=== PATIENT | female | born 1960 | race African-American/Black ===

== ENCOUNTER 2017-02-19 07:08 | Day surgery (SDC) | payer OTHER ==
[~2017-02-19] VITALS: Ht 158.8 cm; Wt 53.0 kg
[2017-02-19] VITALS (9 sets, daily range): BP systolic 108–143; BP diastolic 70–80; PULSE 67–94; RESP 14–29; Ht 158.8 cm; Wt 53.0 kg
[~2017-02-19 07:08] MED LIST: CEFAZOLIN 1 GM INJ ONE
[2017-02-19] MEDS ORDERED: CYCL-319 PO (07:48)
[2017-02-19] MEDS ORDERED: GABA-526 PO (07:49)
[2017-02-19] MEDS ORDERED: NAPR-685 PO (07:50)
[2017-02-19] MEDS ORDERED: MAXZ25 PO (07:50)
[2017-02-19] MEDS ORDERED: METH500T PO (07:50)
[2017-02-19] MEDS ORDERED: DOCU-144 PO (07:51)
[2017-02-19] MEDS ORDERED: OXYB10TA6 PO (07:51)
[2017-02-19] MEDS ORDERED: LIDOCAINE 2% (SDV) 5 ML INJ ONE (08:25)
[2017-02-19] MEDS ORDERED: ROCURONIUM 50 MG INJ ONE (08:25)
[2017-02-19] MEDS ORDERED: PROPOFOL 20 ML ONE (08:25)
[2017-02-19] MEDS ORDERED: ONDANSETRON 4 MG INJ ONE (08:26)
[2017-02-19] MEDS ORDERED: MIDAZOLAM 1 MG/ML 2 ML INJ ONE (08:26)
[2017-02-19] MEDS ORDERED: FENTAnyl 50 MCG/ML VIAL ONE (08:26)
[2017-02-19] MEDS ORDERED: GLYCOPYRROLATE 0.4 MG INJ ONE (08:26)
[2017-02-19] MEDS ORDERED: NEOSTIGMINE 3 MG/3 ML SYRINGE ONE (08:26)
[2017-02-19] MEDS ORDERED: DEXAMETHASONE 4 MG/ML 1 ML INJ ONE (08:26)
[2017-02-19] MEDS ORDERED: SUGAMMADEX SODIUM 200 MG/2 ML VIAL IV ONE (08:27)
[2017-02-19] MEDS ORDERED: hydrALAzine 20 MG INJ ONE (08:47)
[2017-02-19] MEDS ORDERED: FLUMAZENIL 0.5 MG INJ ONE (09:08)
[2017-02-19] MEDS ORDERED: MEPERIDINE 25 MG INJ IV PRN (10:00)
[2017-02-19] MEDS ORDERED: OXYCODONE/ACETAMINOPHEN (5/325) TAB PO PRN ×2 (10:00)
[2017-02-19] MEDS ORDERED: ONDANSETRON 4 MG INJ IV PRN (10:00)
[2017-02-19] MEDS ORDERED: ATROPINE 1 MG/10 ML SYRINGE IV PRN (10:00)
[2017-02-19] MEDS ORDERED: MIDAZOLAM 1 MG/ML 2 ML INJ IV PRN (10:00)
[2017-02-19] MEDS ORDERED: morphine (1 MG/ML) 10ML SYRINGE IV PRN ×3 (10:00)
[2017-02-19] MEDS ORDERED: EPHEDrine SULFATE 50 MG/5 ML SYG IV PRN (10:00)
[2017-02-19] MEDS ORDERED: FENTAnyl 50 MCG/ML VIAL IV PRN ×2 (10:00)
[2017-02-19] MEDS ORDERED: DIPHENHYDRAMINE 50 MG INJ IV PRN (10:00)
[2017-02-19] MEDS ORDERED: HYDROmorphONE (0.2 MG/ML) 10ML SYG IV PRN ×3 (10:00)
[2017-02-19] MEDS ORDERED: LABETALOL HCL 20MG INJ IV PRN (10:00)
[2017-02-19] MEDS ORDERED: hydrALAzine 20 MG INJ IV PRN (10:00)
--- NOTE | 2017-02-19 10:08 | HP ---
DATE OF ADMISSION: 02/19/2017 CHIEF COMPLAINT: Pelvic pain. HISTORY OF PRESENT ILLNESS: This is a 56-year-old female with a known history of right ureteral stent, which is encrusted in the bladder. She is scheduled to undergo treatment of this encrusted stent. This patient underwent a colon cancer surgery, chemotherapy and radiation in 2011 and 2012. She has undergone a partial colectomy, colostomy and colostomy takedown. Due to continued abdominal pain, a CT scan was done, which showed a retained right ureteral stent and left renal duplication. In August 2016, cystoscopy revealed no stones at the ureteral orifice, large stone on right stent in the bladder was identified. The patient's CT scan in October 2016 revealed a right ureteral stent with incrustation in the bladder. There was no mention of incrustation within the kidney. A 6 mm encrustation in the distal ureter had also been identified. In November 2016, renal nuclear scan revealed 17 percent function, right kidney; 83 percent function, left kidney. Patient complains of sharp intermittent right-sided groin pain since this stent has been placed. She has had this pain for the past 3-4 years. She also has intermittent urinary incontinence, especially with an urge to void. She has had occasional blood in her urine. No fevers. PAST MEDICAL HISTORY: Hypertension, chronic kidney disease, hydronephrosis, colon cancer. PAST SURGICAL HISTORY: Colon resection, colostomy takedown, chemotherapy radiation. FAMILY HISTORY: Mother, cervical cancer. SOCIAL HISTORY: Patient drinks alcohol twice per week, smokes 1 pack of cigarettes per day. ALLERGIES: NO KNOWN DRUG ALLERGIES. MEDICATIONS: Cyclobenzaprine, diphenhydramine, gabapentin, triamterene. PHYSICAL EXAMINATION: GENERAL: Patient appears to be in no acute distress. ABDOMEN: Soft, normal bowel sounds. Nondistended, nontender. Hernia exam: None noted. Liver and spleen normal. GENITOURINARY: Kidneys: No CVA tenderness. Bladder: No fullness. EXTREMITIES: No edema. ASSESSMENT: 1. Right-sided retained ureteral stent. 2. Encrusted right ureteral stent in the bladder. 3. Small right ureteral stone. 4. Right hydronephrosis. 5. Right renal atrophy. 6. Left renal duplication. 7. Urinary frequency, urgency, urgency incontinence. 8. Intermittent gross hematuria. RECOMMENDATIONS: I have spoken with the patient in detail about the natural history, biology of encrusted stents. We discussed various treatment options. Among these options, the patient has elected, and I have recommended, that she undergo a cystoscopy, laser lithotripsy of the stone within the bladder, followed by ureteroscopy, laser lithotripsy, retrograde pyelogram, and replacement of the right ureteral stent. This procedure has been explained to the patient in detail. The risks and benefits have been discussed. She understands risks include, but are not limited to, infection, bleeding, damage to adjacent structures, heart problems, lung problems, possibility of need for further surgery, DVT, PE, DC, CVA, nonresolution of symptoms, recurrent symptoms, need for further treatment, need for further surgeries, bladder injury, ureteral injury, inability to remove the stent in 1 setting, need for further treatment such as ESWL and percutaneous nephrostolithotomy. She also understands that although the imaging has not shown encrustation of the stent within the kidney, this is still a possibility. If this stone is encrusted proximally, then she may require PCNL at a later date. All of her questions have been answered. No guarantees given. She would like to proceed. Dictated By: Roni Marks MD /[email or web address] /Document#: [id number]
[2017-02-19] MEDS ORDERED: IOHEXOL 300MG/ML 30 ML BTL ONE (10:19)
--- NOTE | 2017-02-19 11:53 | RADRPT ---
PROCEDURE: X-ray fluoroscopy guidance CLINICAL INDICATION: Pain TECHNIQUE: Fluoroscopic guidance was utilized for retrograde pyelogram. Fluoro time: 0.2 minutes Number of images/sequences: 11 COMPARISON: None available FINDINGS: Contrast is identified within a distended right renal pelvis. IMPRESSION: 1. X-ray fluoroscopic guidance, as above. RPTAT: QQ .Nathan Orr MD, Date Time Electronically viewed and signed by .Nathan Orr MD, on 02/19/2017 11:52 .R/
--- NOTE | 2017-02-19 12:06 | OPR ---
Date/Time of Note Date/Time of Note DATE: 02/19/17 TIME: 12:04 Operative Report Preoperative Diagnosis Encrusted Right ureteral stent Right [place] Right renal atrophy Postoperative Diagnosis Same Operation/Procedure Performed Cystoscopy laser lithotripsy bladder stone/encrusted stent right ureteroscopy stone basket extraction retrograde pyelogram Surgeon: JAIME OCHOA Anesthesia Type: general Estimated Blood Loss: 10 - 50 ml's Transfusion Required: no Specimens bladder stone and right ureteral stent Grafts/Implants 16 fr wood Complications: no JAIME OCHOA Feb 19, 2017 12:06
--- NOTE | 2017-02-19 12:07 | PDOCDIS ---
Discharge Instructions DIAGNOSIS Discharge Diagnosis encrusted ureteral stent CONDITION Patient Condition: Good HOME CARE INSTRUCTIONS: Diet Instructions: Regular ACTIVITY: Activity Restrictions: Slowly Increase Activity Bathing Restrictions: Shower FOLLOW UP/APPOINTMENTS Follow-up Plan 1 -2 weeks OTHER ORDERS: Other Orders: it is ok to have some blood in the urine SCHOOL/WORK RELEASE May return to School/Work on: Mar 01, 2017 May return to School/Work with: No Restrictions JAIME OCHOA Feb 19, 2017 12:07
--- NOTE | 2017-02-19 13:07 | OPR ---
DATE OF OPERATION: 02/19/2017 SURGEON: Dr. Roni Marks. PREOPERATIVE DIAGNOSIS: Encrusted right ureteral stent. POSTOPERATIVE DIAGNOSES: 1. Encrusted right ureteral stent. 2. Right ureteral stone. 3. Cystitis. OPERATION PERFORMED: 1. Cystoscopy with laser lithotripsy of bladder stone greater than 5 cm. 2. Right ureteroscopy with stone basket extraction. 3. Cystoscopy, with right retrograde pyelogram. INDICATIONS FOR PROCEDURE: The patient has a history of colon cancer surgery. She had undergone a stent placement at that time, although it was not clear why she had undergone stent placement at that time. It is not clear that patient's right ureter had been reimplanted in the bladder, and therefore, a stent had been placed. The patient's stent has becoming encrusted. She is now scheduled to undergo removal of the encrusted stent and possible placement of a new stent, as well as ureteroscopy and treatment of stones in the ureter. The procedure has been explained to the patient in detail. Risks and benefits have been discussed. All her questions have been answered. No guarantees given. She would like to proceed. OPERATIVE FINDINGS AT SURGERY: An extremely encrusted stent was identified in the bladder. The stone was greater than 5 cm. There was no encrustation on the stone within the ureter or the kidney. A 6 mm stone in the kidney was also removed with the stone basket extractor. At the end of the procedure, patient was stone free and did not required another stent. The right ureteral orifice was in the right anterior aspect of the bladder wall consistent with a ureteral reimplantation. It appears that at the time of colon cancer surgery patient underwent a right ureteral reimplantation. OPERATIVE PROCEDURE: Patient was brought to the operative room, underwent general endotracheal tube anesthesia. She was placed in lithotomy position. Abdomen, perineum and genitalia were prepped and draped in usual sterile fashion. A 22-Tunisian cystoscope was placed transurethrally. There was increased debris and foul smelly urine within the bladder. A very large stone was identified within the bladder in association with the patient's stent. A 25-Tunisian cystoscope was then placed. At this point, the stone media associate was used to crush some of the outer edges of the stone. However, it was not possible to treat the stone with the stone media associate. The 1000 micron laser fiber was then brought into the surgical field. The stone was then treated with laser lithotripsy. Over 1 hour of laser lithotripsy was performed in order to free the stent from the stone. Care was taken not to fracture the stent into multiple pieces. Throughout the treatment, the bladder was not allowed to overfill. Furthermore, lasering was not done on the mucosa. Extreme care was taken to treat the stone under direct vision and to treat the stone in such a way as to not damage the bladder mucosa. As this was done, the stone continued to break off the stent. The larger pieces of stone were also lasered with laser lithotripsy in order to be able to be irrigate them out of the bladder. Once the stent endoscopically was completely free of the stone distally, a stent grasper was used to remove the stent from the patient. The stent was examined. It appeared that the entire stent had been removed intact. There was no encrustation of the stent more proximally. Therefore, the ureteral portion and the adrenal pelvis portion did not have any stones. At this point, the bladder was copiously irrigated with a Damon syringe until the stone fragments had been removed from the bladder. Cystoscopy was re-performed. There were a few more stones, which were too large to exit the 25-Tunisian cystoscope. Therefore, these stones were also lasered with the laser fiber. These were also irrigated out of the bladder. At this point, cystoscopy was performed. No further stone fragments were seen. The left ureteral orifice was identified in the left trigone. However, the right ureteral orifice was not seen in the ureteral orifice. Instead, the right ureteral orifice was identified in the right anterior wall of the bladder consistent with a ureteral reimplantation. An open-ended catheter was then advanced into the right ureteral orifice. A retrograde pyelogram was performed revealing jetting of contrast into the more proximal portion of the ureter and into a very dilated renal pelvis and calices. At this point, a wire was passed under direct vision with fluoroscopy into the right kidney. A semi-rigid ureteroscope was then advanced under direct vision into the bladder. Next, it was placed into the right ureteral orifice. The distal ureter and mid ureter and proximal ureters were carefully examined under direct vision. The ureter appeared to be open without any evidence of obstruction other than a small stone in the mid ureter. A stone basket extractor was used to grasp the stone. This stone was then brought out of the patient's body completely. The ureteroscope was placed back into the bladder. Another ureteroscopy was performed. This was advanced all the way up into the renal pelvis. No other stones were identified. At this point, the ureteroscope was discontinued. Since it appeared that the ureter was open, decision was made not to place another stent for the patient. Furthermore, there was very minimal manipulation of the actual ureter. The ureteroscope was discontinued. Bladder was reexamined under direct vision with the cystoscope. No other stone fragments were seen. Patient has a history of duplicated left kidney. However, in the bladder only 1 ureteral orifices was identified distally. An 18-Tunisian catheter was placed for the patient. Catheter was hand irrigated. Irrigant was clear. The patient was placed back in the supine position. She was awakened, extubated, taken to recovery room. Postprocedure, conscious and stable. COMPLICATIONS: None. ESTIMATED BLOOD LOSS: Minimal. BLOOD ADMINISTERED: None. SPECIMENS: Sent to lab are bladder stones for chemical analysis. Of note, minimal setting of laser was 1 kilojoule and 10 Hz with maximal setting of 1.3 kilojoules and 15 Hz. Dictated By: Roni Marks MD /[email or web address]/dionne /Document#: [id number]
--- NOTE | 2017-02-19 13:51 | DS ---
DATE OF ADMISSION: 02/19/2017 DATE OF DISCHARGE: 02/19/2017 ADMITTING DIAGNOSES: 1. Right encrusted ureteral stent. 2. Right hydronephrosis. 3. Right renal atrophy. FINAL DIAGNOSES: 1. Right encrusted ureteral stent. 2. Right hydronephrosis. 3. Right renal atrophy. HOSPITAL COURSE: Patient was admitted to the hospital and underwent cystoscopy, laser lithotripsy of encrusted stent within the bladder and removal of stone from the right ureter. She tolerated procedure well. She was then transferred to recovery. Once patient was stable, tolerating a diet. Remained afebrile and pain was well controlled she was discharged home. DISCHARGE INSTRUCTIONS: Activity as tolerated. No heavy lifting. Patient may shower. Follow up in 1-2 weeks. DISCHARGE MEDICATIONS: 1. [place]. 2. [place]. 3. [place]. Dictated By: Roni Marks MD /[email or web address]/[email or web address] /Document#: [id number]
== END 2017-02-19 13:52 | disposition home or self-care (01) ==
LOC: SDS 07:08
PROVIDERS: ATTEND Surgery Surgical Oncology
DX: N20.1 Calculus of ureter (principal); N30.90 Cystitis, unspecified without hematuria; F17.200 Nicotine dependence, unspecified, uncomplicated; I12.9 Hypertensive chronic kidney disease with stage 1 through stage 4 chronic kidney disease, or unspecified chronic kidney disease; N18.9 Chronic kidney disease, unspecified
CPT/HCPCS: 52356; 74420; 88300; J0690; J1100; J1170; J2175; J2250; J2405; J3010; Q9967; Z7512; Z7610; J0360; J2710